=== PATIENT | female | born 1990 | race Caucasian/White ===

== ENCOUNTER 2020-01-29 01:34 | Outpatient (CLI) | payer OTHER ==
[2020-01-29 22:20] LABS: SARS-CoV-2 MS2 Positive; SARS-CoV-2 N Gene Negative; SARS-CoV-2 S Gene Negative; SARS-CoV-2 orf1ab Negative
== END 2020-01-29 01:35 | disposition home or self-care (01) ==
LOC: ERS 01:34
PROVIDERS: ATTEND Obstetrics & Gynecology
DX: Z01.812 Encounter for preprocedural laboratory examination (principal); Z11.59 Encounter for screening for other viral diseases
CPT/HCPCS: 87635; U0003

== ENCOUNTER 2020-01-30 17:18 | Inpatient (IN) | payer OTHER ==
[~2020-01-30 17:18] MED LIST: Bupivacaine HCl 0.5%/Epinephrine 1:200,000/PF 30 ml Vial ONE; Bupivacaine/Epinephrine 0.25% 30 ML VIAL ONE
[2020-01-30] MEDS ORDERED: NS w/ Oxytocin 10 units 500 ML IV SCH (19:36)
[2020-01-30] MEDS ORDERED: Ibuprofen 800 MG TAB PO PRN (19:36)
[2020-01-30] MEDS ORDERED: Ondansetron PF 4 MG/2 ML Vial IVP PRN (19:36)
[2020-01-30] MEDS ORDERED: Zolpidem Tartrate 5 MG TAB PO PRN (19:36)
[2020-01-30] MEDS ORDERED: hydrALAZINE 20 MG/ML VIAL SLOW IVP PRN (19:36)
[2020-01-30] MEDS ORDERED: NS / Oxytocin 40 units/1000ml 1,000 ML IV PRN (19:36)
[2020-01-30] MEDS ORDERED: Carboprost 250 MCG/ML AMP IM PRN (19:36)
[2020-01-30] MEDS ORDERED: Acetaminophen 500 MG TAB PO PRN (19:36)
[2020-01-30] MEDS ORDERED: Promethazine HCl 25 MG/ML VIAL IM PRN (19:36)
[2020-01-30] MEDS ORDERED: Misoprostol 200 MCG TAB PR PRN (19:36)
[2020-01-30] MEDS ORDERED: HYDROcodone/Acetaminophen 5/325 mg Tablet PO PRN (19:36)
[2020-01-30] MEDS ORDERED: Diphenoxylate HCl/Atropine Tablet PO PRN ×2 (19:36)
[2020-01-30] MEDS ORDERED: Butorphanol Tartrate 1 MG/ML VIAL SLOW IVP PRN (19:36)
[2020-01-30] MEDS ORDERED: Lidocaine 1% (PF) 30 ML VIAL SC PRN (19:36)
[2020-01-30 20:52] VITALS: BMI 25.4
[2020-01-30] MEDS: Misoprostol 100 MCG TAB VAG SCH (21:16)
[2020-01-30] MEDS: Lactated Ringer's 1,000 ML IV SCH (21:16)
[2020-01-30 21:42] LABS: Hemoglobin 12.9 g/dL (12.0-16.0); Mean Corpuscular HGB CONC 35.2 g/dL (32.0-36.0); Mean Corpuscular Hemoglobin 33.6 pg (27.0-31.0); Mean Corpuscular Volume 95.5 fL (78.0-98.0); Mean Platelet Volume 8.8 fL (7.4-10.4); Platelet Count 203 thou/uL (130-400); Red Blood Cell (RBC) Count 3.82 mill/uL (4.20-5.40); White Blood Cell (WBC) Count 9.2 thou/uL (4.8-10.8)
[2020-01-30 22:08] LABS: Syphilis Antibody Nonreactive (Nonreactive); Syphilis Antibody Index 0.06 S/CO (<1.00 Non-Reactive)
[2020-01-31] MEDS: Misoprostol 100 MCG TAB VAG SCH ×3 (00:37→19:30)
[2020-01-31 01:27] LABS: HBSAg Index 0.15 S/CO (0-0.99); Hep B Surf Ag Non-Reactive S/CO (NonReactive)
[2020-01-31] MEDS ORDERED: Fentanyl 4 mcg/Bup 0.1% Cadd 100 ML ONE (02:11)
[2020-01-31] MEDS: Lactated Ringer's 1,000 ML IV SCH (02:46)
[2020-01-31] MEDS ORDERED: Lactated Ringer's 500 ML IV PRN (03:44)
[2020-01-31] MEDS ORDERED: EPHEDRINE 25 MG/5 ML SYRINGE SLOW IVP PRN (03:44)
[2020-01-31] MEDS ORDERED: diphenhydrAMINE 50 MG/ML VIAL IVP PRN (03:44)
[2020-01-31] MEDS ORDERED: Promethazine HCl 25 MG/ML VIAL IM PRN (03:44)
[2020-01-31] MEDS ORDERED: Ondansetron PF 4 MG/2 ML Vial IVP PRN (03:44)
[2020-01-31] MEDS ORDERED: Naloxone HCl 0.4 mg/ml Vial IVP PRN ×2 (03:44)
[2020-01-31] MEDS ORDERED: Acetaminophen 325 MG TAB PO PRN (03:44)
[2020-01-31] MEDS ORDERED: Communication Order-Pharmacy FS SCH (03:45)
[2020-01-31] MEDS ORDERED: Fentanyl 4 mcg/Bupivacaine 0.1% Cassette 100 ML EPIDURAL SCH (03:45)
[2020-01-31] MEDS ORDERED: Fentanyl 100 MCG/2 ML VIAL ONE (04:43)
[2020-01-31] MEDS ORDERED: Tranexamic Acid 1,000 MG/10 ML VIAL ONE (08:33)
--- NOTE | 2020-01-31 08:42 | PDOC.OPDEL ---
OB Operative/Delivery Note Delivery Dr/Surgeon: Kat Pre-Delivery Diagnosis: elective induction Procedure/Post Delivery Dx: spontaneous vaginal delivery Weeks gestation: 40 Anesthesia: epidural - Findings A Sex: male - 1 min: 8 - 5 min: 9 - Additional Findings/Plan Repaired Obstetrical Laceration: 2nd degree Estimated blood loss: 1196ml qbl Post delivery plan: recovery in LICU (extended obs due to pph.)
[2020-01-31] MEDS ORDERED: Preparation H Ointment 28 GM TUBE PR PRN (08:43)
[2020-01-31] MEDS ORDERED: Milk Of Magnesia 30 ML UDCUP PO PRN (08:43)
[2020-01-31] MEDS ORDERED: hydrALAZINE 20 MG/ML VIAL SLOW IVP PRN (08:43)
[2020-01-31] MEDS ORDERED: Bisacodyl 10 MG SUPP PR PRN (08:43)
[2020-01-31] MEDS ORDERED: Tranexamic Acid 1,000 MG in Sodium Chloride 0.9% 250 ML 250 ML IVPB SCH (08:45)
[2020-01-31] MEDS ORDERED: Methylergonovine 0.2 MG/ML VIAL IM SCH (08:45)
[2020-01-31] MEDS ORDERED: NS / Oxytocin 40 units/1000ml 1,000 ML IV SCH (08:45)
[2020-01-31 09:46] LABS: Hemoglobin 11.4 g/dL (12.0-16.0); Mean Corpuscular HGB CONC 35.3 g/dL (32.0-36.0); Mean Corpuscular Hemoglobin 33.9 pg (27.0-31.0); Mean Platelet Volume 8.9 fL (7.4-10.4); Platelet Count 178 thou/uL (130-400); RBC Distribution Width 11.8 % (11.5-14.5); Red Blood Cell (RBC) Count 3.36 mill/uL (4.20-5.40); White Blood Cell (WBC) Count 21.4 thou/uL (4.8-10.8)
[2020-01-31] MEDS ORDERED: Diphenoxylate HCl/Atropine Tablet PO SCH (10:00)
[2020-01-31] MEDS: Ibuprofen 800 MG TAB PO SCH ×2 (11:05→21:48)
[2020-01-31] MEDS: Docusate Calcium (SURFAK) 240 MG CAP PO SCH ×2 (19:29→21:48)
[2020-01-31] MEDS: Ferrous Sulfate 325 MG TAB PO SCH (19:30)
[2020-01-31] MEDS: traMADol HCl 50 MG TAB PO PRN (20:29)
[2020-01-31] MEDS: Benzocaine-Menthol 82.5 ML CAN TOP PRN (20:31)
[2020-02-01] MEDS: Ibuprofen 800 MG TAB PO SCH ×3 (05:23→21:37)
--- NOTE | 2020-02-01 07:44 | PDOC.PP ---
Post Progress Note Post Day #: 1 Subjective: Sore. Otherwise, no orthostatic symptoms... Vital Signs (12 hours) Temp Pulse Resp BP Pulse Ox 02/01/20 05:20 98.1 F 90 18 114/73 02/01/20 00:00 98.4 F 82 18 100/59 L 01/31/20 20:20 98.6 F 93 18 124/77 99 Weight Weight 172 lb Result Diagrams: 01/31/20 09:31 Additional Labs: Post Labs Blood Type A POSITIVE 01/30/20 23:02 Hep Bs Antigen Non-Reactive S/CO (NonReactive) 01/30/20 21:12 - Assessment/Plan Post day 1--pph from [facility]. Vitals stable. AM hemagram pending. Routine care. F/u lab...
[2020-02-01] MEDS: Docusate Calcium (SURFAK) 240 MG CAP PO SCH ×2 (07:46→21:37)
[2020-02-01] MEDS: traMADol HCl 50 MG TAB PO PRN ×3 (07:46→20:11)
[2020-02-01] MEDS: Ferrous Sulfate 325 MG TAB PO SCH ×2 (07:46→18:40)
[2020-02-01 08:22] LABS: Hemoglobin 7.9 g/dL (12.0-16.0); Mean Corpuscular HGB CONC 35.4 g/dL (32.0-36.0); Mean Corpuscular Hemoglobin 34.1 pg (27.0-31.0); Mean Corpuscular Volume 96.2 fL (78.0-98.0); Mean Platelet Volume 8.2 fL (7.4-10.4); Platelet Count 124 thou/uL (130-400); RBC Distribution Width 11.9 % (11.5-14.5); Red Blood Cell (RBC) Count 2.32 mill/uL (4.20-5.40); White Blood Cell (WBC) Count 11.9 thou/uL (4.8-10.8)
[2020-02-01] MEDS ORDERED: Adacel (T-DAP) 0.5 ML SYRINGE IM ONE (08:43)
[2020-02-02] MEDS: Ibuprofen 800 MG TAB PO SCH (05:22)
[2020-02-02] MEDS: traMADol HCl 50 MG TAB PO PRN ×2 (05:22→13:07)
--- NOTE | 2020-02-02 07:23 | PDOC.PP ---
Post Progress Note Post Day #: PPD2 Subjective: Resting. No c/o, denies dizziness or ARGUETA. PO intake tolerated: yes Flatus: yes Ambulation: yes Vital Signs (12 hours) Temp Pulse Resp BP Pulse Ox 02/01/20 20:00 98.1 F 82 18 117/69 98 Weight Weight 78.018 kg - Physical Examination General: NAD Respiratory: non-labored breathing Abdominal: no distention Neurological: no gross focal deficits Psychiatric: normal affect Result Diagrams: 02/01/20 07:52 Additional Labs: Post Labs Blood Type A POSITIVE 01/30/20 23:02 Hep Bs Antigen Non-Reactive S/CO (NonReactive) 01/30/20 21:12 - Assessment/Plan Doing well s/p with PPH. Hgb=7.9, tolerating well. DC home with FeS. Precautions given. RTC [address] Stephens.
[2020-02-02 08:28] VITALS: BP 121/70; TEMP 97.9
[2020-02-02] MEDS: Ferrous Sulfate 325 MG TAB PO SCH (08:29)
[2020-02-02] MEDS: Docusate Calcium (SURFAK) 240 MG CAP PO SCH (08:29)
[2020-02-02] MEDS: Benzocaine-Menthol 82.5 ML CAN TOP PRN (13:23)
== END 2020-02-02 13:45 | disposition home or self-care (01) | DRG 806 ==
LOC: L&D 19:11 → UNDOADMIN 19:11 → L&D 19:27 → 3SW 01-31 15:55
PROVIDERS: ADMIT Obstetrics & Gynecology; ATTEND Obstetrics & Gynecology
PROC: 10E0XZZ Delivery of Products of Conception, External Approach (ICD-10-PCS; principal; 2020-01-31)
PROC: 0KQM0ZZ Repair Perineum Muscle, Open Approach (ICD-10-PCS; 2020-01-31)
PROC: 3E0P7VZ Introduction of Hormone into Female Reproductive, Via Natural or Artificial Opening (ICD-10-PCS; 2020-01-31)
DX: O70.1 Second degree perineal laceration during delivery (principal); O72.1 Other immediate postpartum hemorrhage; Z37.0 Single live birth; Z3A.40 40 weeks gestation of pregnancy
CPT/HCPCS: 36415; 51702; 85027; 86780; 86850; 86900; 86901; 87340; 87635; J0670; J2210; J2405; J3010; J3490; J7050; U0003